=== PATIENT | male | born 1955 | race Caucasian/White ===

== ENCOUNTER 2021-07-27 07:09 | Day surgery (SDC) | payer MEDICARE, OTHER, SELFPAY ==
--- NOTE | 2021-07-26 08:13 | HO.ANESPROP2 ---
Documented by User: Patricia King NP 07/26/21 08:14 HPI - Anesthesia Eval Consult details Narrative: 66yo M for Colonoscopy +ETOH: >3 daily PMFSH Past Medical History Medical History (Updated 07/21/21 @ 16:40 by Steffanie Hale RN) Bipolar 1 disorder, depressed Celiac disease History of wrist fracture Hypotension Pre-syncope Sinus bradycardia Surgical History Surgical History (Updated 07/21/21 @ 16:40 by Steffanie Hale RN) History of lung surgery Hx of colonoscopy Social History Social History (Updated 07/21/21 @ 16:18 by Steffanie Hale, SALINAS) Alcohol intake: current Alcohol intake frequency: 3 or more drinks per day Alcohol type: beer Patient Tobacco Use Status: Current everyday Tobacco user Tobacco use type: Cigar Smoked in Last 30 Days: Yes Use of substances other than those prescribed or required for medical reasons: No Advance Directives: No Advance Directives Information Provided: Yes Meds Allergies Allergy/AdvReac Type Severity Reaction Status Date / Time No Known Allergies Allergy Verified 07/21/21 16:17 Home Medications Medication Instructions Recorded Confirmed Last Taken Type fludrocortisone 0.1 mg tablet 0.1 mg PO DAILY 07/21/21 07/21/21 Unknown History lamotrigine 50 mg disintegrating 50 mg PO BID 07/21/21 07/21/21 Unknown History tablet risperidone 0.5 mg tablet 0.5 mg PO BID 07/21/21 07/21/21 Unknown History (Risperdal) Exam Exam Date and Time: July 26, 2021 0813 Assessment and Plan Assessment Anesthesia Assessment: Chart Reviewed Documented by User: Jp Clarke MD 07/27/21 07:30 PMFSH Past Medical History Medical History (Updated 07/21/21 @ 16:40 by Steffanie Hale RN) Bipolar 1 disorder, depressed Celiac disease History of wrist fracture Hypotension Pre-syncope Sinus bradycardia Family History Family history of problems with anesthesia: No Surgical History Surgical History (Updated 07/21/21 @ 16:40 by Steffanie Hale RN) History of lung surgery Hx of colonoscopy History of Problems with Anesthesia: No Social History Social History (Updated 07/21/21 @ 16:18 by Steffanie Hale RN) Alcohol intake: current Alcohol intake frequency: 3 or more drinks per day Alcohol type: beer Patient Tobacco Use Status: Current everyday Tobacco user Tobacco use type: Cigar Smoked in Last 30 Days: Yes Use of substances other than those prescribed or required for medical reasons: No Advance Directives: No Advance Directives Information Provided: Yes Meds Allergies Allergy/AdvReac Type Severity Reaction Status Date / Time No Known Allergies Allergy Verified 07/21/21 16:17 Home Medications Medication Instructions Recorded Confirmed Last Taken Type fludrocortisone 0.1 mg tablet 0.1 mg PO DAILY 07/21/21 07/21/21 Unknown History lamotrigine 50 mg disintegrating 50 mg PO BID 07/21/21 07/21/21 Unknown History tablet risperidone 0.5 mg tablet 0.5 mg PO BID 07/21/21 07/21/21 Unknown History (Risperdal) Exam Airway Mallampati Class: II TM Dist: >3cm Neck ROM: Full Loose/Missing/Broken Teeth: Yes (few missing upper and lower) Heart: [id number] Lungs: cta b/l Assessment and Plan Assessment Anesthesia Assessment: Anesthesia Plan Discussed Final Anesthetic Review Family History of Problems with Anesthesia: No History of Problems with Anesthesia: No NPO: Yes ASA Class: II Final Preanesthetic Review: No Changes in Pt Med Stat, Meds/Allgs Chart Reviewed, Consent Obtained/Reviewed and Anes Risks/Benef Reviewed Patient Risk: Intermediate Procedure Risk: Low Assessment/Block/Sedation in SS: Assess/Block/Sedation-SS Anesthetic Plan Anesthetic Plan: MAC: and Agree w/ Assess. and Plan Disposition: Standard PACU
[2021-07-27 07:29] VITALS: BP 123/70; PULSE 48; RESP 16; TEMP 36.3; O2SAT 98; BMI 22.9
[2021-07-27] MEDS: Lactated Ringers 1,000 ML 100 ML IVCONT (07:44)
--- NOTE | 2021-07-27 08:15 | MHC.SHP ---
Pre-Procedural Eval Section A Date of Service: 07/27/21 The patient is an INPATIENT: No Changes since office visit: No Cold of Flu in the past 2 weeks, No New Medical Problems, No Changes in Medication and No Patient answered all questions The History & Physical has been completed within 30 days and I have reviewed it.: Yes Section B Chief Complaint: screening Allergies: Allergies Allergy/AdvReac Type Severity Reaction Status Date / Time No Known Allergies Allergy Verified 07/21/21 16:17 Plan I have reviewed the history and physical and performed a pertinent physical examination on my patient. No changes have occurred unless specified.
--- NOTE | 2021-07-27 08:40 | PM.OP ---
Brief Operative Note Date of Service: 07/27/21 Pre-op diagnosis: screening Post-op diagnosis: same (colon polyps) Procedure: colonoscopy Surgeon: Fabricio Hidalgo Anesthesia: MAC Was an [employer] Director used for this Procedure?: No Estimated blood loss (mL): 5 Pathology: other (polyps x2) Condition: stable Disposition: PACU
[2021-07-27 08:43] VITALS: BP 92/44; PULSE 44; RESP 16; TEMP 36.4; O2SAT 99
[2021-07-27 08:58] VITALS: BP 109/43; PULSE 45; RESP 20; TEMP 36.4; O2SAT 98
--- NOTE | 2021-07-27 09:57 | OP_ITS ---
SURGEON: Fabricio Hidalgo MD INDICATIONS: Colon cancer screening. PREOPERATIVE DIAGNOSIS: POSTOPERATIVE DIAGNOSIS: PROCEDURE PERFORMED: Colonoscopy to the terminal ileum with snare polypectomy. ESTIMATED BLOOD LOSS: COMPLICATIONS: ANESTHESIA: Monitored anesthesia care. ASSISTANTS: SPECIMENS: DESCRIPTION OF PROCEDURE: History and physical performed. The risks and benefits of the procedure were explained to the patient. Informed consent was obtained. The patient was placed in the left lateral decubitus position. A digital rectal exam was performed and was found to be normal. The Olympus pediatric video colonoscope was introduced into the rectum and advanced to the cecum without difficulty. The cecum was identified by transillumination, palpation, and identification of ileocecal valve. Examination was performed. The scope was removed. He tolerated the procedure well and was taken to recovery area in stable condition. FINDINGS: The terminal ileum was normal. Visualized colonic mucosa was within normal limits without evidence of masses or ulcers. Two polyps were identified, both removed with a snare. One was located in the cecum near the appendiceal orifice measuring 6 mm, The second was located on the ileocecal valve also measuring 6 mm. No other polyps were identified. The quality of the prep was good. Retroflexed examination showed small internal hemorrhoids. IMPRESSION: Colon polyps. RECOMMENDATION: Followup the biopsy results. MD ALECIA Claudio/REAGAN / [id number] MTDD
== END 2021-07-27 09:38 | disposition home or self-care (01) ==
PROVIDERS: PCP Internal Medicine; Visit Provider Internal Medicine Gastroenterology
PROC: 0DJD8ZZ Inspection of Lower Intestinal Tract, Via Natural or Artificial Opening Endoscopic (ICD-10-PCS; CPT 45378; principal; 2021-07-27 08:20)
DX: Z12.11 Encounter for screening for malignant neoplasm of colon (principal); D12.0 Benign neoplasm of cecum; Z86.010 Personal history of colon polyps
CPT/HCPCS: 45385; 88305